=== PATIENT | female | born 1960 | race Caucasian/White ===

== ENCOUNTER → 2020-05-16 18:58 | Outpatient (CLI) | payer BC, SELFPAY ==
[2020-05-16 19:44] LABS: Basophils % 0.1 % (0.1-2.0); Eosinophils % 0.1 % (0.1-12.0); Hematocrit 34.3 % (37.0-47.0); Hemoglobin 11.1 g/dL (12.2-16.2); Lymphocytes # 1.7 K/mm3 (0.7-4.5); Lymphocytes % 22.6 % (10-50); Mean Corpuscular HGB Conc 32.2 g/dL (31.8-35.4); Mean Corpuscular Hemoglobin 27.3 pg (27.0-31.2); Mean Corpuscular Volume 84.7 fl (81-99); Mean Platelet Volume 8.9 fl (7.4-10.4); Monocytes # 0.3 K/mm3 (0.1-1.0); Monocytes % 4.1 % (1.7-9.3); Neutrophils # 5.5 K/mm3 (1.8-7.8); Neutrophils % 73.1 % (37.0-80.0); Platelet Count 378 K/mm3 (142-424); Red Blood Count 4.05 M/mm3 (4.20-5.40); Red Cell Distribution Width 14.2 % (11.5-17.5); White Blood Count 7.5 K/mm3 (4.8-10.8)
[2020-05-16 19:59] LABS: Alanine Aminotransferase 20 U/L (12-78); Albumin Level 4.1 g/dl (3.5-5.0); Albumin/Globulin Ratio 1.4 (1.1-1.8); Alkaline Phosphatase 86 U/L (38-126); Anion Gap 14.5 mEq/L (5-15); Aspartate Amino Transferase 33 U/L (14-36); Bilirubin,Total 0.3 mg/dl (0.2-1.3); Blood Urea Nitrogen 29 mg/dl (7-17); Calcium 9.9 mg/dl (8.4-10.2); Carbon Dioxide 25 mmol/L (22.0-30.0); Chloride 107 mmol/L (98-107); Estimated Glomerular Filt Rate 50 ml/min (>60); GFR (African American) 61 ML/MIN (>60); Globulin 2.9 g/dL (1.3-3.2); Glucose 105 mg/dl (74-100); Potassium 4.5 mmoL/L (3.5-5.1); Sodium 142 mmol/L (136-145)
[2020-05-16 20:03] LABS: Total Iron Binding Capacity 422 ug/dL (265-497)
[2020-05-16 20:26] LABS: Hemoglobin A1C 8.2 % (4.0-6.0)
[2020-05-16 21:02] LABS: Iron 57 ug/dL (37-170)
[2020-05-16 21:31] LABS: Ferritin 61.3 ng/ml (11.1-264)
[2020-05-16 22:01] LABS: T4 (Thyroxine) 9.3 ug/dl (5.53-11.0)
[2020-05-16 22:32] LABS: Thyroid Stimulating Hormone 1.16 uIU/mL (0.465-4.68)
== END ==
PROVIDERS: Visit Provider Family Medicine
DX: D64.9 Anemia, unspecified (principal); E11.9 Type 2 diabetes mellitus without complications
CPT/HCPCS: 80053; 82728; 83036; 83540; 83550; 84436; 84443; 85025

== ENCOUNTER → 2021-03-28 13:49 | Outpatient (CLI) | payer BC, SELFPAY ==
[2021-03-28 14:35] LABS: Creatinine,Urine Random 78 mg/dL (Not Estab.)
[2021-03-28 15:02] LABS: Microalbumin < 6.000 mg/L (0-16.7)
[2021-03-28 15:49] LABS: Hemoglobin A1C 7.7 % (4.0-6.0)
== END ==
PROVIDERS: Visit Provider Family Medicine
DX: E11.9 Type 2 diabetes mellitus without complications (principal); Z79.4 Long term (current) use of insulin
CPT/HCPCS: 82043; 82570; 83036; 84443

== ENCOUNTER → 2021-11-24 16:00 | Outpatient (CLI) | payer BC, SELFPAY ==
[2021-11-24 18:17] LABS: Basophils % 0.2 % (0.1-2.0); Hematocrit 37.6 % (37.0-47.0); Lymphocytes # 1.4 K/mm3 (0.7-4.5); Lymphocytes % 16.2 % (10-50); Mean Corpuscular Hemoglobin 26.9 pg (27.0-31.2); Mean Corpuscular Volume 83.9 fl (81-99); Mean Platelet Volume 9.2 fl (7.4-10.4); Monocytes # 0.3 K/mm3 (0.1-1.0); Monocytes % 3.2 % (1.7-9.3); Neutrophils # 6.8 K/mm3 (1.8-7.8); Neutrophils % 80.4 % (37.0-80.0); Platelet Count 371 K/mm3 (142-424); Red Blood Count 4.48 M/mm3 (4.20-5.40); Red Cell Distribution Width 14.8 % (11.5-17.5); White Blood Count 8.5 K/mm3 (4.8-10.8)
[2021-11-24 18:44] LABS: Hemoglobin A1C 8.7 % (4.0-6.0)
[2021-11-24 19:58] LABS: Alanine Aminotransferase 27 U/L (12-78); Albumin Level 4.2 g/dl (3.5-5.0); Albumin/Globulin Ratio 1.5 (1.1-1.8); Alkaline Phosphatase 81 U/L (38-126); Anion Gap 16.7 mEq/L (5-15); Aspartate Amino Transferase 29 U/L (14-36); Bilirubin,Total 0.4 mg/dl (0.2-1.3); Blood Urea Nitrogen 21 mg/dl (7-17); Calcium 9.1 mg/dl (8.4-10.2); Carbon Dioxide 21 mmol/L (22.0-30.0); Chloride 105 mmol/L (98-107); Chol/HDL Ratio 3.7 (1-3.5); Cholesterol 241 mg/dl (140-200); Estimated Glomerular Filt Rate 56 ml/min (>60); GFR (African American) 68 ML/MIN (>60); Globulin 2.8 g/dL (1.3-3.2); Glucose 189 mg/dl (74-100); HDL Cholesterol 65 mg/dl (40-60); Potassium 4.7 mmoL/L (3.5-5.1); Sodium 138 mmol/L (136-145); Triglycerides 164 mg/dl (30-150); VLDL Cholesterol 33 mg/dL (0-40)
[2021-11-24 20:09] LABS: Direct LDL Cholesterol 132.03 mg/dL (100-129)
[2021-11-24 20:43] LABS: Thyroid Stimulating Hormone 1.65 uIU/mL (0.465-4.68)
== END ==
PROVIDERS: Visit Provider Family Medicine
DX: Z00.00 Encounter for general adult medical examination without abnormal findings (principal); R69 Illness, unspecified; E11.9 Type 2 diabetes mellitus without complications; Z79.4 Long term (current) use of insulin
CPT/HCPCS: 80053; 80061; 83036; 84443; 85025

== ENCOUNTER → 2022-05-28 16:44 | Outpatient (CLI) | payer BC, SELFPAY ==
[2022-05-28 14:46] LABS: Hemoglobin A1C 7.8 % (4.0-6.0)
== END ==
PROVIDERS: PCP Family Medicine; Visit Provider Family Medicine
DX: E11.9 Type 2 diabetes mellitus without complications (principal); Z79.4 Long term (current) use of insulin
CPT/HCPCS: 83036

== ENCOUNTER → 2023-08-23 06:56 | Outpatient (CLI) | payer BC, SELFPAY ==
[2023-08-23 18:23] LABS: Basophils % 0.1 % (0.1-2.0); Eosinophils % 0.1 % (0.1-12.0); Hematocrit 32.5 % (37.0-47.0); Hemoglobin 10.3 g/dL (12.2-16.2); Lymphocytes # 1.3 K/mm3 (0.7-4.5); Lymphocytes % 23.5 % (10-50); Mean Corpuscular HGB Conc 31.6 g/dL (31.8-35.4); Mean Corpuscular Hemoglobin 27.1 pg (27.0-31.2); Mean Corpuscular Volume 85.6 fl (81-99); Mean Platelet Volume 8.9 fl (7.4-10.4); Monocytes # 0.3 K/mm3 (0.1-1.0); Neutrophils # 3.9 K/mm3 (1.8-7.8); Neutrophils % 71.3 % (37.0-80.0); Platelet Count 288 K/mm3 (142-424); Red Blood Count 3.79 M/mm3 (4.20-5.40); White Blood Count 5.4 K/mm3 (4.8-10.8)
[2023-08-23 18:28] LABS: Alanine Aminotransferase 24 U/L (12-78); Albumin Level 3.7 g/dl (3.5-5.0); Albumin/Globulin Ratio 1.3 (1.1-1.8); Alkaline Phosphatase 72 U/L (38-126); Anion Gap 7.6 mEq/L (5-15); Aspartate Amino Transferase 35 U/L (14-36); Bilirubin,Total 0.2 mg/dl (0.2-1.3); Blood Urea Nitrogen 20 mg/dl (7-17); Calcium 8.8 mg/dl (8.4-10.2); Carbon Dioxide 26 mmol/L (22.0-30.0); Chloride 110 mmol/L (98-107); Chol/HDL Ratio 3.8 (1-3.5); Cholesterol 197 mg/dl (140-200); Estimated Glomerular Filt Rate 56 ml/min (>60); GFR (African American) 68 ML/MIN (>60); Globulin 2.8 g/dL (1.3-3.2); Glucose 94 mg/dl (74-100); HDL Cholesterol 52 mg/dl (40-60); Potassium 4.6 mmoL/L (3.5-5.1); Sodium 139 mmol/L (136-145); Total Protein,Serum 6.5 g/dl (6.3-8.2); Triglycerides 221 mg/dl (30-150); VLDL Cholesterol 44 mg/dL (0-40)
[2023-08-23 18:39] LABS: Direct LDL Cholesterol 108.94 mg/dL (100-129)
[2023-08-23 18:57] LABS: Hemoglobin A1C 7.8 % (4.0-6.0)
[2023-08-23 18:58] LABS: Thyroid Stimulating Hormone 0.09 uIU/mL (0.465-4.68)
[2023-08-23 19:10] LABS: Microalbumin/Creatinine Ratio 7.3
[2023-08-23 19:13] LABS: Creatinine,Urine Random 123 mg/dL (Not Estab.)
== END ==
PROVIDERS: PCP Family Medicine; Visit Provider Family Medicine
DX: E11.9 Type 2 diabetes mellitus without complications (principal); Z79.4 Long term (current) use of insulin; Z79.84 Long term (current) use of oral hypoglycemic drugs; Z79.85 Long-term (current) use of injectable non-insulin antidiabetic drugs
CPT/HCPCS: 80053; 80061; 82043; 82570; 83036; 84443; 85025

== ENCOUNTER 2024-05-17 16:21 | Outpatient (CLI) | payer BC, SELFPAY ==
[2024-05-17 18:22] LABS: Basophils % 0.1 % (0.1-2.0); Hematocrit 33.8 % (37.0-47.0); Lymphocytes # 1.6 K/mm3 (0.7-4.5); Mean Corpuscular HGB Conc 29.7 g/dL (31.8-35.4); Mean Corpuscular Hemoglobin 26.9 pg (27.0-31.2); Mean Corpuscular Volume 90.5 fl (81-99); Mean Platelet Volume 9.9 fl (7.4-10.4); Monocytes # 0.3 K/mm3 (0.1-1.0); Neutrophils # 4.5 K/mm3 (1.8-7.8); Neutrophils % 69.9 % (37.0-80.0); Platelet Count 351 K/mm3 (142-424); Red Blood Count 3.73 M/mm3 (4.20-5.40); Red Cell Distribution Width 14.6 % (11.5-17.5); White Blood Count 6.4 K/mm3 (4.8-10.8)
[2024-05-17 18:27] LABS: Creatinine,Urine Random 50 mg/dL (Not Estab.)
[2024-05-17 18:52] LABS: Alanine Aminotransferase 25 U/L (12-78); Albumin Level 3.6 g/dl (3.5-5.0); Albumin/Globulin Ratio 1.2 (1.1-1.8); Alkaline Phosphatase 63 U/L (38-126); Anion Gap 12.3 mEq/L (5-15); Aspartate Amino Transferase 30 U/L (14-36); Bilirubin,Total 0.2 mg/dl (0.2-1.3); Blood Urea Nitrogen 24 mg/dl (7-17); Calcium 9.3 mg/dl (8.4-10.2); Carbon Dioxide 23 mmol/L (22.0-30.0); Chloride 105 mmol/L (98-107); Cholesterol 204 mg/dl (140-200); Estimated Glomerular Filt Rate 50 ml/min (>60); GFR (African American) 60 ML/MIN (>60); Globulin 2.9 g/dL (1.3-3.2); Glucose 126 mg/dl (74-100); HDL Cholesterol 69 mg/dl (40-60); Hemoglobin A1C 7.1 % (4.0-6.0); Potassium 5.3 mmoL/L (3.5-5.1); Sodium 135 mmol/L (136-145); Total Protein,Serum 6.5 g/dl (6.3-8.2); Triglycerides 181 mg/dl (30-150); VLDL Cholesterol 36 mg/dL (0-40)
[2024-05-17 18:53] LABS: Microalbumin < 6.000 mg/L (0-16.7)
[2024-05-17 19:02] LABS: Direct LDL Cholesterol 97.11 mg/dL (100-129)
[2024-05-17 19:24] LABS: Thyroid Stimulating Hormone 2.53 uIU/mL (0.465-4.68)
[2024-05-17 20:04] LABS: Iron 59 ug/dL (37-170)
[2024-05-17 20:13] LABS: Total Iron Binding Capacity 440 ug/dL (265-497)
== END 2024-05-17 23:59 | disposition home or self-care (01) ==
LOC: LAB.DROPOF 05-18 10:19
PROVIDERS: PCP Family Medicine; Visit Provider Family Medicine
DX: D50.9 Iron deficiency anemia, unspecified (principal); E11.9 Type 2 diabetes mellitus without complications; Z79.84 Long term (current) use of oral hypoglycemic drugs
CPT/HCPCS: 80050; 80053; 80061; 82043; 82570; 83036; 83540; 83550; 84443; 85025

== ENCOUNTER 2025-06-25 11:07 | Outpatient (CLI) | payer MEDICARE, SELFPAY ==
[2025-06-25 21:02] LABS: Hematocrit 34.0 % (37.0-47.0); Hemoglobin 10.2 g/dL (12.2-16.2); Immature Granulocytes % 0.3 %; Mean Corpuscular HGB Conc 30.0 g/dL (31.8-35.4); Mean Corpuscular Hemoglobin 27.1 pg (27.0-31.2); Mean Corpuscular Volume 90.4 fl (81-99); Nucleated Red Blood Cells % 0 %; Platelet Count 323 K/mm3 (142-424); Red Blood Count 3.76 M/mm3 (4.20-5.40); Red Cell Distribution Width-SD 46.5 fL; White Blood Count 6.5 K/mm3 (4.8-10.8)
[2025-06-25 21:21] LABS: Albumin Level 3.9 g/dl (3.5-5.0); Chloride 105 mmol/L (98-107)
[2025-06-25 21:22] LABS: Sodium 137 mmol/L (136-145)
[2025-06-25 21:24] LABS: Alanine Aminotransferase 26 U/L (12-78); Albumin/Globulin Ratio 1.4 (1.1-1.8); Alkaline Phosphatase 63 U/L (38-126); Anion Gap 14.0 mEq/L (5-15); Aspartate Amino Transferase 32 U/L (14-36); Bilirubin,Total 0.2 mg/dl (0.2-1.3); Blood Urea Nitrogen 26 mg/dl (7-17); Carbon Dioxide 24 mmol/L (22.0-30.0); Creatinine,Serum 1.20 mg/dl (0.52-1.04); Estimated Glomerular Filt Rate 45 ml/min (>60); GFR (African American) 54 ML/MIN (>60); Globulin 2.8 g/dL (1.3-3.2); Total Protein,Serum 6.7 g/dl (6.3-8.2); Triglycerides 206 mg/dl (30-150)
[2025-06-25 21:25] LABS: Calcium 9.2 mg/dl (8.4-10.2); Cholesterol 210 mg/dl (140-200); Glucose 94 mg/dl (74-100); HDL Cholesterol 61 mg/dl (40-60); Iron 113 ug/dL (37-170)
[2025-06-25 21:35] LABS: Total Iron Binding Capacity 405 ug/dL (265-497)
[2025-06-25 21:45] LABS: Potassium 6.0 mmoL/L (3.5-5.1)
[2025-06-25 21:46] LABS: T4 (Thyroxine) 7.3 ug/dl (5.53-11.0)
[2025-06-25 21:59] LABS: Thyroid Stimulating Hormone 4.34 uIU/mL (0.465-4.68)
[2025-06-25 22:15] LABS: Hepatitis C Ab Qual. W/ RFX NEGATIVE (Negative)
[2025-06-27 04:42] LABS: Hepatitis B Surface Antigen Negative (Negative)
--- OUTSIDE RECORDS SUMMARY | 2025-06-27 11:45 | XMS_ITS | Clinical Summary ---
Author Organization [facility] Address [address] [place] [address] Care Team Providers Care Moss Bleacher Name Role Phone Corey Roman MD Primary Care Provider [phone] Source Comments This information has been disclosed to you from confidential records protectedfrom disclosure by state law. You shall make no further disclosure of thisinformation without the specific, written, and informed release of theindividual to whom it pertains, or as otherwise permitted by law. A generalauthorization for the release of medical or other information is not sufficientfor the purposes of therelease of HIV test results or diagnoses. [id number] Social History Tobacco Use Types Packs/Day Years Used Date Smoking Tobacco: Never Assessed Comments Unknown Sex and Gender Information Value Date Recorded Sex Assigned at Not on file Legal Sex Female 5:31 PM EST Gender Identity Not on file Sexual Orientation Not on file Plan of Treatment Health Maintenance Due Date Last Done Comments Abnormal Colonoscopy Follow Up 1959 Hepatitis C Screening (MyChart) 1959 Alcohol Misuse Screening 1977 Depression Screening 1977 Immunization: DTaP/Tdap/Td (1 - Tdap) 1978 Cologuard (FIT-DNA) 01/02/2004 Colonoscopy 01/02/2004 Colorectal Cancer Screening (MyChart) 01/02/2004 Stool Testing (gFOBT) 01/02/2004 Immunization: Pneumococcal ( 1 of 1 - PCV) 2009 Immunization: Zoster (1 of 2) 2009 Osteoporosis Screening (DXA Scan) 2009 Mammogram (MyChart) 08/21/2024 08/21/2022 Immunization: COVID-19 ( season) 2025 07/11/2021, 10/12/2020, 09/21/2020 Immunization: Influenza (MyC sky) (#1) 2025 06/19/2022, 06/24/2021, 06/24/2020 Immunization: RSV (Adult) (1 - 1-dose 75+ series) 2034 Procedures Procedure Name Priority Date/Time Associated Diagnosis Comments MAMMO SCREENING BILATERAL Routine 08/21/2022 9:32 AM EST Screening mammogram, encounter for from Last 3 Months or Most Recently Relevant to Health Maintenance Results * Mammography Screening Bilateral incl CAD (08/21/2022 9:32 AM EST) Anatomical Region Laterality Modality Breast Bilateral Mammography 08/21/2022 9:31 AM EST Impressions 08/22/2022 10:35 AM EST IMPRESSION: No mammographic evidence of malignancy. Recommendations: Annual screening mammography. ACR BI-RADS Category: 2 (benign findings) Report Verified by: Allyn Rosales MD at 08/22/2022 10:35 AM EST Narrative 08/22/2022 10:35 AM EST Exam: Digital bilateral breast screening mammogram with tomosynthesis and CAD on 08/21/2022 9:31 AM EST. Indication: Screening mammography. No contributory breast history. Comparison: 06/23/2018. Technique: Digital mammographic and tomosynthesis images were obtained in MLO and CC projections. The mammographic images were double read with R2 CAD ImageChecker. Breast Density: The breast tissue is predominantly fatty. Findings: There are no suspicious masses, calcifications, or architectural distortions. An asymmetry in the inner left breast at mid depth is unchanged from 2018, considered benign. There has been no significant interval change. Procedure Note Allyn Rosales MD - 08/22/2022 Exam: Digital bilateral breast screening mammogram with tomosynthesis andCAD on 08/21/2022 9:31 AM EST. Indication: Screening mammography. No contributory breast history. Comparison: 06/23/2018. Technique: Digital mammographic and tomosynthesis images were obtained inMLO and CC projections. The mammographic images were double read with R2CAD ImageChecker. Breast Density: The breast tissue is predominantly fatty. Findings: There are no suspicious masses, calcifications, or architecturaldistortions. An asymmetry in the inner left breast at mid depth isunchanged from 2018, considered benign. There has been no significantinterval change. IMPRESSION: No mammographic evidence of malignancy. Recommendations: Annual screening mammography. ACR BI-RADS Category: 2 (benign findings) Report Verified by: Allyn Rosales MD at 08/22/2022 10:35 AM EST Corey Roman MD IM MAMMOGRAPHY ORDERABLES Gina l Result from Last 3 Months or Most Recently Relevant to Health Maintenance Insurance BLUE ACCESS Care Teams Moss Bleacher Relationship Specialty Start Date End Date Corey Roman MD [address] [place] [address] PCP - General Family Medicine 08/21/22
--- OUTSIDE RECORDS SUMMARY | 2025-06-27 11:45 | XMS_ITS | Clinical Summary ---
Author Organization [facility] Address [address] [place] [address] Care Team Providers Care Art Historian Name Role Phone Unavailable Primary Care Provider Unavailabl e Social History Tobacco Use Types Packs/Day Years Used Date Smoking Tobacco: Never Assessed Comments Unknown Sex and Gender Information Value Date Recorded Sex Assigned at Not on file Legal Sex Female 8:47 PM EDT Gender Identity Not on file Sexual Orientation Not on file Plan of Treatment Health Maintenance Due Date Last Done Comments Hepatitis C Screening 1959 DTap,Tdap,and Td (1 - Tdap) 1970 Mammogram Screening 1999 Colonoscopy 01/02/2004 Pneumococcal 50+ (1 of 1 - PCV) 2009 Shingrix (#1) 2009 DEXA Scan 01/02/2024 Influenza Vaccine (#1) 2025 RSV Vaccine (60+ or ) (1 - 1-dose 75+ series) 2034 HPV Aged Out No longer eligi ble based on patient's age to complete this topic Meningococcal conjugate brennon nt 4 (MCV4) Aged Out No longer eligible b ased on patient's age to complete this topic RSV Immunization (<20 months) Aged Out No longer eligible based on patient's age to complete this topic
--- OUTSIDE RECORDS SUMMARY | 2025-06-27 11:45 | XMS_ITS | Clinical Summary ---
Author Organization [facility] Address [address] [facility] [address] [address] Phone Care Team Providers Care Client Service Executive Name Role Phone Richard Figueroa MD Unavailable Unavailable Corey Roman MD Primary Care Provider [phone] Allergies Active Allergy Reactions Criticality Noted Date Comments Ceclor Cd 06/16/2016 Ciprofloxacin Rash High 11/02/2011 Oxaprozin Anaphylaxis High 11/02/2011 Cephalexin Anaphylaxis High 11/02/2011 Medications * This document contains information received from the source organization and may not represent a complete record from that organization. rosuvastatin (CRESTOR) 40 mg tablet Take 40 mg by mouth daily. Active saxagliptin-me tformin (KOMBIGLYZE XR) 2.5-1,000 mg TM24 Take by mouth daily. Active ESOMEPRAZOLE MAGNESIUM (NEXIUM ORAL) Take by mouth. A ctive LEVOTHYROXINE SODIUM (LEVOTHYROXINE ORAL) Take 175 mcg by mouth daily. Active lisinopril (PRINIVIL;ZEST RIL) 10 mg Oral Tablet Take by mouth daily. Active Diphenhydramin e-Acetaminophe n (PERCOGESIC) 12.5-325 mg Oral Tablet Take by mouth. Act melissa Insulin Glargine (LANTUS) 100 unit/mL (3 mL) SubQ Insulin Pen Subcutaneous (Inject under the skin) 45 Units every evening. Active diazePAM (VALIUM) 5 mg Oral Tablet Take 1 Tab by mouth 2 times daily. 60 Tab 11/24/19 19 Active venlafaxine (EFFEXOR XR) 150 mg Oral Capsule, Sust. Release 24 hrIndications: MDD (major depressive disorder), recurrent episode, moderate (HCC),Anxiety 2 caps daily 180 Capsule 2 04/10/20 25 Active mirtazapine (REMERON) 30 mg Oral TabletIndicati ons:MDD (major depressive disorder), recurrent episode, moderate (HCC),Anxiety Take 1 Tablet by mouth nightly. 100 Tablet 04/10/20 25 Active temazepam (RESTORIL) 30 mg Oral Capsule TAKE 1 CAPSULE BY MOUTH DAILY. 30 Capsule 05/30/20 25 Active temazepam (RESTORIL) 30 mg Oral Capsule Take 1 Capsule by mouth daily. 30 Capsule 04/30/20 25 025 Discontinued Active Problems Patient Care Coordination No te Formatting of this note migh t be different from the original. Roxanne Robbin CSA Signed: 10/23/13 SOPHIE: 02/22/19 UDS 11/23/18 Problem Noted Date Diagnosed Date Anxiety 11/21/2019 Overview (09/08/2023): stress in her life Assessment & Plan (03/17/2023 9:32 AM EDT): Goal: achieve mental health wellness where ADLs, family, social and work relationships are optimal Addressed: - Current stressors contributing to sx explored and discussed Compliance: - compliant with medications Advice: - advised to contact the office if increased depressive or anxiety symptoms develop Medication Management: - medication management decisions took place at today's visit (see orders) Assessment & Plan (09/15/2022 4:55 PM EST): Goal: achieve mental health wellness where ADLs, family, social and work relationships are optimal Addressed: - Current stressors contributing to sx explored and discussed Compliance: - taking medications as prescribed. Advice: - advised to contact the office if increased depressive or anxiety symptoms develop Medication Management: - medication management decisions took place at today's visit (see orders) Assessment & Plan (06/17/2022 5:08 PM EDT): Goal: achieve mental health wellness where ADLs, family, social and work relationships are optimal Addressed: - Current stressors contributing to sx explored and discussed Compliance: - taking medications as prescribed. Advice: - advised to contact the office if increased depressive or anxiety symptoms develop Medication Management: - medication management decisions took place at today's visit (see orders) Assessment & Plan (03/11/2022 2:00 PM EDT): Goal: achieve mental health wellness where ADLs, family, social and work relationships are optimal Addressed: - Current stressors contributing to sx explored and discussed Compliance: - taking medications as prescribed. Advice: - advised to contact the office if increased depressive or anxiety symptoms develop Medication Management: - medication management decisions took place at today's visit (see orders) Assessment & Plan (09/10/2021 4:27 PM EST): stable Assessment & Plan (06/11/2021 2:58 PM EDT): stress at school Assessment & Plan (03/12/2021 4:31 PM EDT): improved PTSD (post-traumatic stress disorder) 08/23/2013 Overview (06/15/2023): some anger issues Assessment & Plan (03/17/2023 9:32 AM EDT): Goal: achieve mental health wellness where ADLs, family, social and work relationships are optimal Addressed: - Current stressors contributing to sx explored and discussed Compliance: - compliant with medications Advice: - advised to contact the office if increased depressive or anxiety symptoms develop Medication Management: - medication management decisions took place at today's visit (see orders) Assessment & Plan (12/15/2022 4:20 PM EDT): stable Assessment & Plan (09/15/2022 4:55 PM EST): coping skills Assessment & Plan (06/17/2022 5:07 PM EDT): coping skills Assessment & Plan (03/11/2022 2:00 PM EDT): Goal: achieve mental health wellness where ADLs, family, social and work relationships are optimal Addressed: - Current stressors contributing to sx explored and discussed Compliance: - taking medications as prescribed. Advice: - advised to contact the office if increased depressive or anxiety symptoms develop Medication Management: - a reassessment of the patients current diagnoses, medications, labs, potential SE, appropriate dose and risks assessed and discussed today Assessment & Plan (12/10/2021 2:13 PM EDT): coping skills- depressed Assessment & Plan (09/10/2021 4:31 PM EST): coping skills Assessment & Plan (06/11/2021 2:58 PM EDT): coping skills Insomnia 07/31/2013 Overview (03/17/2023): stable Assessment & Plan (09/16/2022 10:46 AM EST): stable Assessment & Plan (06/17/2022 5:08 PM EDT): stable Assessment & Plan (03/11/2022 2:00 PM EDT): stable Assessment & Plan (12/10/2021 2:12 PM EDT): she is sleeping Assessment & Plan (09/10/2021 4:27 PM EST): improved Assessment & Plan (06/11/2021 2:59 PM EDT): stable Assessment & Plan (03/12/2021 4:30 PM EDT): improved Assessment & Plan (12/11/2020 4:24 PM EDT): restoril 30mg MDD (major depressive disord er), recurrent episode, moderate 07/18/2013 Overview (03/17/2023): dealing with grief - loss of family memeber Assessment & Plan (12/15/2022 4:19 PM EDT): Goal: achieve mental health wellness where ADLs, family, social and work relationships are optimal Addressed: - Current stressors contributing to sx explored and discussed Compliance: - taking medications as prescribed. Advice: - advised to contact the office if increased depressive or anxiety symptoms develop Medication Management: - medication management decisions took place at today's visit (see orders) Assessment & Plan (09/15/2022 4:55 PM EST): Goal: achieve mental health wellness where ADLs, family, social and work relationships are optimal Addressed: - Current stressors contributing to sx explored and discussed Compliance: - taking medications as prescribed. Advice: - advised to contact the office if increased depressive or anxiety symptoms develop Medication Management: - medication management decisions took place at today's visit (see orders) Assessment & Plan (06/17/2022 5:07 PM EDT): Goal: achieve mental health wellness where ADLs, family, social and work relationships are optimal Addressed: - Current stressors contributing to sx explored and discussed Compliance: - taking medications as prescribed. Advice: - advised to contact the office if increased depressive or anxiety symptoms develop Medication Management: - medication management decisions took place at today's visit (see orders) Assessment & Plan (12/10/2021 2:12 PM EDT): she has depression - situational Assessment & Plan (09/10/2021 4:28 PM EST): stable- doing good with school Assessment & Plan (06/11/2021 2:59 PM EDT): has her ups and downs- stress at school Assessment & Plan (03/12/2021 4:31 PM EDT): improved Assessment & Plan (12/11/2020 4:24 PM EDT): remeron 30mg Resolved Problems Problem Noted Date Diagnosed Date Resolved Date JACE (generalized anxiety disorder) 07/18/2013 08/23/2013 Assessment & Plan (12/15/2022 4:19 PM EDT): Goal: achieve mental health wellness where ADLs, family, social and work relationships are optimal Addressed: - Current stressors contributing to sx explored and discussed Compliance: - taking medications as prescribed. Advice: - advised to contact the office if increased depressive or anxiety symptoms develop - stable Medication Management: - a reassessment of the patients current diagnoses, medications, labs, potential SE, appropriate dose and risks assessed and discussed today Assessment & Plan (12/10/2021 2:15 PM EDT): increased stress Immunizations Immunization Administration Dates Next Due Pfizer SARS-CoV-2 Vaccine 12+ Yrs (Purple Cap) 0 10/12/2020,09/21/2020 Tdap 01/08/2023 Surgical History Surgery Date Site/Laterality Comments ORTHOPEDIC SURGERY CARPAL TUNNEL RELEASE Medical History Medical History Date Comments Depressed JACE (generalized anxiety disorder) 07/18/2013 MDD (major depressive disord er), recurrent episode, moderate (HCC) 07/18/2013 PTSD (post-traumatic stress disorder) 08/23/2013 Diabetes mellitus (HCC) Social History Tobacco Use Types Packs/Day Years Used Date Smoking Tobacco: Never Smokeless Tobacco: Never Alcohol Use Standard Drinks/Week Comments Yes 2 (1 standard drink = 0.6 oz pur e alcohol) couple drinks daily Comments No Sex and Gender Information Value Date Recorded Sex Assigned at Not on file Legal Sex Female 5:20 AM EDT Gender Identity Not on file Sexual Orientation Not on file Last Filed Vital Signs Vital Sign Reading Time Taken Comments Blood Pressure 135/79 05/11/2023 8:44 AM EDT Pulse 106 05/11/2023 8:39 AM EDT Temperature 36.3 C (97.3 F) 05/11/2023 8:44 AM EDT Respiratory Rate 16 05/11/2023 8:39 AM EDT Oxygen Saturation 98% 05/11/2023 8:39 AM EDT Inhaled Oxygen Concentration - - Weight 75.8 kg (167 lb) 06/16/2016 11:18 AM EDT Height 152.4 cm (5') 06/16/2016 11:18 AM EDT Body Mass Index 32.61 06/16/2016 11:18 AM EDT Plan of Treatment Health Maintenance Due Date Last Done Comments Annual Wellness Exam 1962 Hepatitis C Screening 1977 Cologuard 01/02/2004 Colon Cancer Screening 01/02/2004 Colonoscopy 01/02/2004 FIT 01/02/2004 Sigmoidoscopy 01/02/2004 Virtual Colonography 01/02/2004 Pneumococcal Vaccine 50+ (1 of 1 - PCV) 2009 Zoster (1 of 2) 2009 Bone Density Screening 01/02/2024 Breast Cancer Screening 08/21/2024 08/21/20 22, 08/21/2022, 07/27/2018, Additional history exists COVID-19 Vaccine ( season) 2025 07/11/2021, 10/12/2020, 09/21/2020 Influenza Vaccine (#1) 2025 , 06/04/2023, 06/19/2022, Additional history exists DTaP/TDaP/Td (2 - Td or Tdap) 01/08/2033 01/08/2023 Hepatitis B Vaccine Aged Out No longe r eligible based on patient's age to complete this topic Meningococcal B Vaccine Aged Out No l onger eligible based on patient's age to complete this topic Procedures Procedure Name Priority Date/Time Associated Diagnosis Comments MM MAMMO DIGITAL ROBEL DIAGN LEFT Routine 07/27/2018 10:17 AM EST Breast density from Last 3 Months or Most Recently Relevant to Health Maintenance Results * MM MAMMO DIGITAL ROBEL DIAGN LEFT (07/27/2018 10:17 AM EST) Anatomical Region Laterality Modality Breast Left Mammography 07/27/2018 11:2 9 AM EST Impressions 07/27/2018 11:29 AM EST Incomplete-need additional imaging evaluation (MFI-Gwsikocs-5) ~ RECOMMENDATION: Ultrasound of the left breast. This ultrasound examination has been performed on 07-27-18 and will be reported separately. ~ DISCLAIMER * Any patient with a palpable abnormality, unexplained by breast imaging, should be managed on clinical basis by the attending physician. * Breast imaging has a false negative rate of 15%. * The patient was notified by mail of the results of this examination. *The patient's information was entered into a reminder system with a target due date for the next mammogram. Narrative 07/27/2018 11:29 AM EST Procedure:MM MAMMO DIGITAL ROBEL DIAGN LEFT ~ Reason for exam: addl evaluation requested from abnormal screening. R92.2-Inconclusive [id number]-CM ~ MM MAMMO DIGITAL ROBEL DIAGN LEFT CC and MLO view(s) were taken of the left breast. Technologist: RT Brittney The breast tissue is almost entirely fat. Prior study comparison: Compared with prior studies, the most recent being 06/23/18 and 05/28/10. Three circumscribed 2 to 4 mm nodules are present in the mid 10:00 part of left breast. ~ Procedure Note Jorge Ochoa MD - 07/27/2018 Procedure:MM MAMMO DIGITAL ROBEL DIAGN LEFT ~ Reason for exam: addl evaluation requested from abnormal screening. R92.2-Inconclusive [id number]-CM ~ MM MAMMO DIGITAL ROBEL DIAGN LEFT CC and MLO view(s) were taken of the left breast. Technologist: Sherri Thomas RT The breast tissue is almost entirely fat. Prior study comparison: Compared with prior studies, the most recentbeing 06/23/18 and 05/28/10. Three circumscribed 2 to 4 mm nodules are present in the mid 10:00 partof left breast. ~ IMPRESSION: Incomplete-need additional imaging evaluation (MSH-Vefpaxgo-0) ~ RECOMMENDATION: Ultrasound of the left breast. This ultrasound examination has been performed on 07-27-18 and will be reported separately. ~ DISCLAIMER * Any patient with a palpable abnormality, unexplained by breast imaging, should be managed on clinical basis by the attending physician. * Breast imaging has a false negative rate of 15%. * The patient was notified by mail of the results of this examination. *The patient's information was entered into a reminder system with atarget due date for the next mammogram. Corey Roman MD IMG MAMMOGRAPHY ORDERABLES Final Result from Last 3 Months or Most Recently Relevant to Health Maintenance Insurance [employer] MEDICARE TRAVELERS GENERIC WORKERS' COMP GENERIC WORKERS' COMP Care Teams Client Service Executive Relationship Specialty Start Date End Date Corey Roman MD PCP - General Family Medicine 06/03/16 Richard Figueroa MD Physician Psychiatry & Neurology-Psychiatry 01/30/14
== END 2025-06-25 23:59 ==
LOC: LAB.DROPOF 06-27 11:08
PROVIDERS: PCP Family Medicine; Visit Provider Family Medicine
DX: E03.9 Hypothyroidism, unspecified (principal); E11.9 Type 2 diabetes mellitus without complications; D50.9 Iron deficiency anemia, unspecified; Z11.59 Encounter for screening for other viral diseases
CPT/HCPCS: 80053; 80061; 83540; 83550; 84436; 84443; 85025; 86803; 87340; 87389

== ENCOUNTER 2025-06-27 08:46 | Outpatient (CLI) | payer MEDICARE, SELFPAY ==
[2025-06-27 19:57] LABS: Chloride 104 mmol/L (98-107); Sodium 137 mmol/L (136-145)
[2025-06-27 20:00] LABS: Blood Urea Nitrogen 26 mg/dl (7-17); Creatinine,Serum 1.30 mg/dl (0.52-1.04); Estimated Glomerular Filt Rate 41 ml/min (>60); GFR (African American) 50 ML/MIN (>60)
[2025-06-27 20:01] LABS: Anion Gap 13.2 mEq/L (5-15); Calcium 9.3 mg/dl (8.4-10.2); Carbon Dioxide 26 mmol/L (22.0-30.0); Glucose 140 mg/dl (74-100)
[2025-06-27 20:19] LABS: Potassium 6.2 mmoL/L (3.5-5.1)
== END 2025-06-27 23:59 ==
LOC: LAB.DROPOF 06-29 08:47
PROVIDERS: PCP Family Medicine; Visit Provider Family Medicine
DX: E87.5 Hyperkalemia (principal)
CPT/HCPCS: 80048

== ENCOUNTER 2025-06-27 22:29 | Emergency (ER) | payer MEDICARE, SELFPAY ==
[2025-06-27 22:32] VITALS: BP 156/86; PULSE 101; RESP 18; TEMP 36.8; O2SAT 100; BMI 28.9
--- OUTSIDE RECORDS SUMMARY | 2025-06-27 22:41 | XMS_ITS | Clinical Summary ---
Author Organization [facility] Address [address] [place] [id number] Care Team Providers Care Forest Management Teacher Name Role Phone Corey Roamn MD Primary Care Provider [phone] Source Comments This information has been disclosed [...] therelease of HIV test results or diagnoses. [id number] Social History Tobacco Use Types Packs/Day [...] Health Maintenance Insurance BLUE ACCESS Care Teams Forest Management Teacher Relationship Specialty Start Date End Date Corey Roman MD [address] [place] [address] PCP - General Family Medicine 08/21/22
--- OUTSIDE RECORDS SUMMARY | 2025-06-27 22:41 | XMS_ITS | Clinical Summary ---
Author Organization [facility] Address [address] [place] [id number] Care Team Providers Care Stores Laborer Name Role Phone Unavailable Primary Care Provider [...]
--- OUTSIDE RECORDS SUMMARY | 2025-06-27 22:41 | XMS_ITS | Clinical Summary ---
Author Organization [facility] Address [address] [facility] [address] [place] [address] Phone Care Team Providers Care Floor Layer Name Role Phone Richard Figueroa MD Unavailable Unavailable Corey Roman MD Primary Care Provider [phone] Allergies Active Allergy Reactions Criticality Noted Date [...] 11:29 AM EST Incomplete-need additional imaging evaluation (QMA-Sbjxumnz-1) ~ RECOMMENDATION: Ultrasound of the left breast. [...] addl evaluation requested from abnormal screening. R92.2-Inconclusive ygyiupvfw-DVZ-05-CM ~ MM MAMMO DIGITAL ROBEL DIAGN LEFT [...] addl evaluation requested from abnormal screening. R92.2-Inconclusive ziyuuwmak-[id number]-CM ~ MM MAMMO DIGITAL ROBEL DIAGN LEFT CC and MLO view(s) were taken of the left breast. Technologist: Sherri Thomas RT The breast tissue is almost entirely fat. Prior study comparison: Compared with prior studies, the most recentbeing 06/23/18 and 05/28/10. Three circumscribed 2 to 4 mm nodules are present in the mid 10:00 partof left breast. ~ IMPRESSION: Incomplete-need additional imaging evaluation (IUY-Ebaistwm-4) ~ RECOMMENDATION: Ultrasound of the left breast. [...] WORKERS' COMP GENERIC WORKERS' COMP Care Teams Floor Layer Relationship Specialty Start Date End Date Corey Roman MD PCP - General Family Medicine 06/03/16 Richard Figueroa MD Physician Psychiatry & Neurology-Psychiatry 01/30/14
--- NOTE | 2025-06-27 22:44 | ECG_ITS ---
APPROVED REPORT Exam: Resting ECG HR:94 bpm ECG Measurements Heart Rate 94 AXES MI 119 P 66 QRSd 81 QRS 46 QT 342 T 54 QTc 393 Conclusion SINUS RHYTHM WITH SHORT MI INTERVAL BORDERLINE ECG UNCONFIRMED REPORT Electronically signed by : GEOVANNI MC, 06/28/2025 06:43:18
--- NOTE | 2025-06-27 23:04 | HMH.EDGENADL ---
Discharge Plan Disposition Patient Disposition: Home, Self-Care Prescriptions Prescriptions: No Action temazepam 30 mg capsule 30 mg PO QHS mirtazapine 30 mg tablet 30 mg PO DAILY Mounjaro 5 mg/0.5 mL pen injector 5 mg SQ WEEKLY Qty: 2 12RF (DME) pen needle, diabetic [BD Evangelina 2nd Gen Pen Needle] 32 gauge x 5/32 needle See Rx Instructions .ROUTE .COMPLEX Qty: 100 10RF Dose Instruction: USE ONE DAILY. Rx Instructions: USE ONE DAILY. rosuvastatin 40 mg tablet 40 mg PO DAILY Qty: 90 3RF lisinopril 2.5 mg tablet See Rx Instructions .ROUTE .COMPLEX Qty: 90 3RF Dose Instruction: TAKE 1 TABLET BY MOUTH DAILY. Rx Instructions: TAKE 1 TABLET BY MOUTH DAILY. levothyroxine 88 mcg capsule 88 mcg PO DAILY Qty: 90 3RF esomeprazole magnesium 40 mg capsule,delayed release(DR/EC) See Rx Instructions .ROUTE .COMPLEX Qty: 90 3RF Dose Instruction: TAKE 1 CAPSULE BY MOUTH DAILY. Rx Instructions: TAKE 1 CAPSULE BY MOUTH DAILY. ferrous sulfate 325 mg (65 mg iron) tablet 325 mg PO DAILY Qty: 90 3RF fenofibrate nanocrystallized 145 mg tablet See Rx Instructions .ROUTE .COMPLEX Qty: 90 3RF Dose Instruction: TAKE 1 TABLET BY MOUTH DAILY. Rx Instructions: TAKE 1 TABLET BY MOUTH DAILY. metformin 1,000 mg tablet See Rx Instructions .ROUTE .COMPLEX Qty: 180 3RF Dose Instruction: TAKE 1 TABLET BY MOUTH DAILY. Rx Instructions: TAKE 1 TABLET BY MOUTH twice daily. insulin glargine [Lantus Solostar U-100 Insulin] 100 unit/mL (3 mL) insulin pen 60 unit SQ HS Qty: 15 12RF diazepam 5 mg tablet 5 mg PO DAILY PRN (Reason: anxiety) Qty: 30 5RF venlafaxine 150 mg capsule,extended release 24hr 150 mg PO DAILY Rx Instructions: 2 capsules daily Referrals Follow up/Referrals: Corey Roman MD [Primary Care Provider, Family Practice] - See instructions Activity Restrictions/Add. Instructions Additional Instructions/Restrictions: Please call your PCP to schedule lab recheck. Clinical Impressions Clinical Impression: BALDEMAR (acute kidney injury), Hypomagnesemia Print Language Print Language: Trinidadian Discharge ED Provider: Sukhwinder Delarosa Adult HPI General Chief complaint: Medical Clearance Stated complaint: Critical Labs, high potassium Time Seen by Provider: 06/27/25 23:00 Mode of Arrival: Ambulatory Source of Information: Patient Description of Symptoms (Recalled from ER Triage Doc. by RN): Pt was advised by PCP to come in and be seen due to potassium level being elevated. Pt states she thinks her level was 6.2 History of Present Illness HPI narrative: 65-year-old female with history of hypothyroidism diabetes and anemia presents for lab check. She reports that she had her blood work drawn recently and was called to be told that her potassium was 6.2 and that she needed to get her levels rechecked. She denies any chest pain abdominal pain shortness of breath recent fever illness, changes in medication, changes in bowel or bladder function etc. Related Data Home Medications ?Medication ?Instructions ?Recorded ?Confirmed mirtazapine 30 mg tablet 30 mg PO DAILY 05/16/20 06/27/25 temazepam 30 mg capsule 30 mg PO QHS 05/16/20 06/27/25 venlafaxine 150 mg 150 mg PO DAILY 04/14/22 06/27/25 capsule,extended release 24 hr Previous Rx's ?Medication ?Instructions ?Recorded pen needle, diabetic 32 gauge x #100 ea 08/23/23 (BD Evangelina 2nd Gen Pen Needle) tirzepatide 5 mg/0.5 mL 5 mg (0.5 mL) SQ WEEKLY #2 mL 05/17/24 subcutaneous pen injector (Mounjaro) esomeprazole magnesium 40 mg See Rx Instructions .Route 06/25/25 capsule,delayed release .COMPLEX #90 caps fenofibrate nanocrystallized 145 See Rx Instructions .Route 06/25/25 mg tablet .COMPLEX #90 tabs ferrous sulfate 325 mg (65 mg 325 mg PO DAILY #90 tabs 06/25/25 iron) tablet insulin glargine 100 unit/mL (3 60 unit (0.6 mL) SQ HS #15 mL 06/25/25 mL) subcutaneous pen (Lantus Solostar U-100 Insulin) levothyroxine 88 mcg capsule 88 mcg PO DAILY #90 caps 06/25/25 lisinopril 2.5 mg tablet See Rx Instructions .Route 06/25/25 .COMPLEX #90 tabs metformin 1,000 mg tablet See Rx Instructions .Route 06/25/25 .COMPLEX #180 tabs rosuvastatin 40 mg tablet 40 mg PO DAILY #90 tabs 06/25/25 diazepam 5 mg tablet 5 mg PO DAILY PRN anxiety #30 tabs 06/27/25 Allergies Allergy/AdvReac Type Severity Reaction Status Date / Time ciprofloxacin (From Cipro) Allergy Intermediate shortness Verified 06/27/25 13:22 of breath cefaclor Allergy Mild Rash Verified 06/27/25 13:22 cephalexin Allergy Mild Rash Verified 06/27/25 13:22 clindamycin AdvReac Mild Rash Verified 06/27/25 13:22 amoxicillin (From Augmentin) AdvReac Unknown Other Verified 06/27/25 13:22 clavulanic acid (From AdvReac Unknown Other Verified 06/27/25 13:22 Augmentin) [facility] Disclaimer: The information contained in this section may have been updated after the patient was seen, as this information can be updated by other users. Medical History (Updated 06/28/25 @ 00:15 by Sukhwinder Delarosa MD) Anemia Hypothyroidism Anxiety Diabetes Surgical History (Updated 06/25/25 @ 13:23 by Danelle Gerard MA) No history of previous surgery Family History (Updated 06/25/25 @ 13:24 by Danelle Gerard MA) Mother Diabetes Other Thyroid disorder Social History (Updated 06/25/25 @ 13:24 by Danelle Gerard MA) Smoking Status: Never smoker alcohol intake: never substance use type: denies use current occupational status: employed Travel in the last 8 weeks?: None household members: none housing: house Have you lived/traveled outside US in past 30 days?: No Contact w/someone who lives/traveled outside US past 30 days?: No Exposure to someone with infectious disease in past 14 days?: No Do you have a fever (greater than 100.4 F or 38 C)?: No Have you tested positive for COVID-19?: No Exposed to someone with COVID-19 in past 14 days?: No Do you have a sore throat?: No Do you have a cough?: No Do you have any weakness?: No Do you have any diarrhea?: No Are you experiencing any unusual bleeding?: No Do you have any muscle aches/pain?: No Do you have any abdominal pain?: No Are you experiencing loss of taste or smell?: No Other Medical History Have you received the Pneumonia Vaccine: No ROS Obtained: Yes All systems reviewed & no additional complaints except as documented Physical Exam General General appearance: alert and in no apparent distress Head Head exam: atraumatic and normocephalic Eye Eye exam: Present normal appearance, PERRL and EOMI ENT ENT exam: Present normal oropharynx and normal external ear exam Neck Neck exam: Present normal inspection and full ROM Chest Chest inspection: Present normal inspection and symmetric chest wall rise; Absent tenderness Respiratory Respiratory exam: Present normal lung sounds bilaterally; Absent respiratory distress Cardiovascular Cardiovascular exam: Present regular rate and normal rhythm Abdominal Exam Abdominal exam: Present soft; Absent distention, tenderness or guarding Extremities Exam Extremities exam: Present normal inspection; Absent edema or joint swelling Back Exam Back exam: Present normal inspection; Absent tenderness Neurological Exam Neurological exam: Present alert and oriented X3; Absent motor sensory deficit Psychiatric Psychiatric exam: Present normal affect and normal mood Skin Skin exam: Present warm, dry and normal color Lymphatic Lymphatic Findings: no adenopathy Medical Decision Making Medical Records Medical records reviewed: Yes I reviewed the patient's medical records. Screening: Per USPSTF and CDC recommendations, given the prevalence of disease in our region, it is our hospital?s policy to screen for HIV and viral Hepatitis for all patients aged 18 and over and those with ongoing risk factors. Los Inquiry Pt receiving controlled substance: No Los was queried for this patient: No Vital Signs: 06/27/25 22:32 06/28/25 00:53 06/28/25 00:58 Temperature 98.3 F 98.7 F Temperature Source Temporal Artery Scan Pulse Rate 90 84 Pulse Rate [Right] 101 H Respiratory Rate 18 22 16 Blood Pressure 159/92 H 139/84 Blood Pressure [Right Arm] 156/86 H Blood Pressure Mean [Right Arm] 109 Blood Pressure Source [Right Arm] Automatic Cuff Blood Pressure Position [Right Arm] Sitting 02 Sat by Pulse Oximetry 100 93 L Oxygen Delivery Method Room Air Room Air 06/28/25 01:00 06/28/25 01:16 06/28/25 01:30 Temperature Temperature Source Pulse Rate 95 H 87 90 Pulse Rate [Right] Respiratory Rate 22 Blood Pressure 165/88 H 176/91 H 187/96 H Blood Pressure [Right Arm] Blood Pressure Mean [Right Arm] Blood Pressure Source [Right Arm] Blood Pressure Position [Right Arm] 02 Sat by Pulse Oximetry 94 L 98 98 Oxygen Delivery Method 06/28/25 01:35 Temperature Temperature Source Pulse Rate 91 H Pulse Rate [Right] Respiratory Rate Blood Pressure 169/94 H Blood Pressure [Right Arm] Blood Pressure Mean [Right Arm] Blood Pressure Source [Right Arm] Blood Pressure Position [Right Arm] 02 Sat by Pulse Oximetry 98 Oxygen Delivery Method Lab Data Lab results reviewed: Yes I reviewed the patient's lab results. Lab Results 06/27/25 22:53: WBC 6.3, RBC 3.63 L, Hgb 9.9 L, Hct 32.8 L, MCV 90.4, MCH 27.3, MCHC 30.2 L, RDW 13.8, Plt Count 287, MPV 11.5 H, Neut % (Auto) 63.6, Lymph % (Auto) 28.8, Rich % (Auto) 7.4, Eos % (Auto) 0.0 L, Baso % (Auto) 0.0 L, Neut # (Auto) 4.0, Lymph # (Auto) 1.8, Rich # (Auto) 0.5, Eos # (Auto) 0.0, Baso # (Auto) 0.0, Sodium 139, Potassium 5.1, Chloride 105, Carbon Dioxide 25, Anion Gap 14.1, BUN 28 H, Creatinine 1.60 H D, Estimated Creat Clear 37, Estimated GFR 32 L, Est GFR ( Amer) 39 L D, Glucose 219 H D, Calcium 9.0, Phosphorus 3.6, Magnesium 1.2 L, Total Bilirubin 0.4, AST 27, ALT 24, Alkaline Phosphatase 60, Total Protein 6.6, Albumin 3.9, Globulin 2.7, Albumin/Globulin Ratio 1.4 06/28/25 01:07: Urine Color Yellow, Urine Appearance Clear, Urine pH 7.0, Ur Specific Barco 1.010, Urine Protein Negative, Urine Glucose (UA) Negative, Urine Ketones Negative, Urine Blood Negative, Urine Nitrate Negative, Urine Bilirubin Negative, Urine Urobilinogen 0.2, Ur Leukocyte Esterase Negative, Urine WBC Occasional, Ur Squamous Epith Cells 3-5, Urine Bacteria Trace 06/28/25 01:22: Sodium 139, Potassium 4.8, Chloride 105, Carbon Dioxide 25, Anion Gap 13.8, BUN 27 H, Creatinine 1.30 H, Estimated Creat Clear 45, Estimated GFR 41 L, Est GFR ( Amer) 50 L D, Glucose 142 H D, Calcium 9.1 06/27/25 22:53 06/28/25 01:22 Orders (Tests/Meds): ED MEDICATIONS Discontinued Medications Generic Name Dose Route Start Last Admin Trade Name Ean PRN Reason Stop Dose Admin Magnesium Sulfate 2 gm in 50 mls @ 50 mls/hr 06/27/25 23:28 06/28/25 00:55 Magnesium Sulfate 2gm/50ml Premix IV 06/28/25 00:27 Infused ONCE ONE Infusion Lactated Ringer's 1,000 mls @ 999 mls/hr 06/27/25 23:30 06/28/25 00:54 Lactated Ringer's 1000 Ml Bag IV 06/28/25 00:30 Infused .Q1H1M LEONA Infusion Magnesium Sulfate 2 gm in 50 mls @ 50 mls/hr 06/27/25 23:28 06/28/25 00:01 Magnesium Sulfate 2gm/50ml Premix IV 06/28/25 00:27 Infused ONCE ONE Infusion ORDERS Category Date Time Status BMP [Basic Metabolic Panel] Stat Lab 06/28/25 01:22 Completed CBC w/Auto Diff [Complete Blood Count Auto Diff] Stat Lab 06/27/25 22:53 Completed CMP [Comprehensive Metabolic Panel] Stat Lab 06/27/25 22:53 Completed Magnesium Stat Lab 06/27/25 22:53 Completed Phosphorous Stat Lab 06/27/25 22:53 Completed UA [Urinalysis and Microscopic] Stat Lab 06/28/25 01:07 Completed Medical Decision Narrative: 65-year-old female with history of diabetes and hypothyroidism presents for lab recheck after potassium was noted to be 6.2 and her creatinine was uptrending on recent outpatient lab work. She is asymptomatic.. History was obtained via interactive discussion with patient, family, chart review. On arrival, patient is [afebrile, hemodynamically stable, satting appropriately, alert, oriented x4, GCS 15], moving all extremities spontaneously. Full physical exam performed and significant for no significant physical exam abnormalities. Differential includes but is not limited to BALDEMAR, hyperkalemia, lab error. Her labs have been trending in the wrong direction over the last month or so. Her baseline creatinine is 1.0. Workup initiated including CBC CMP mag Phos. EKG On re-evaluation, patient [remains afebrile, HD stable.] Laboratory workup independently interpreted by me and significant for potassium 5.1, normal. Her magnesium is slightly low at 1.2. Her BUN and creatinine are 28 and 1.6 respectively. Her creatinine has up trended from 1.2-1.6 over the last couple of days.. EKG independently interpreted by me and significant for sinus rhythm with short CT interval, ventricular rate of 94, no widening QRS or T wave changes to suggest symptomatic hyperkalemia. Interpreted at 2244. Given patient history, exam and workup, patient's presentation most likely represents mild BALDEMAR with mild electrolyte derangements. I had interactive discussion with patient regarding presentation. We initiated 4 g of mag and 1 L of IV fluids for treatment. I recommended/offered admission for her for BALDEMAR given her creatinine has continued to trend upwards without an obvious source. Patient reports that she would prefer to follow-up with her PCP for lab recheck over the next day or 2. Given her electrolytes are normal and her creatinine elevation is still somewhat mild, I think this is reasonable. We ultimately decided to recheck her creatinine in the ER after fluids and it had downtrended to 1.3. Given this, I think she is definitely appropriate for discharge and she will follow-up with her PCP for reassessment. Procedures Risk/Benefits of Procedure(s) Were Explained: Yes Critical Care Critical Care Time Critical Care Time: No
[2025-06-27 23:08] LABS: Hematocrit 32.8 % (37.0-47.0); Hemoglobin 9.9 g/dL (12.2-16.2); Immature Granulocytes % 0.2 %; Mean Corpuscular HGB Conc 30.2 g/dL (31.8-35.4); Mean Corpuscular Hemoglobin 27.3 pg (27.0-31.2); Mean Corpuscular Volume 90.4 fl (81-99); Nucleated Red Blood Cells % 0 %; Platelet Count 287 K/mm3 (142-424); Red Blood Count 3.63 M/mm3 (4.20-5.40); Red Cell Distribution Width-SD 45.6 fL; White Blood Count 6.3 K/mm3 (4.8-10.8)
[2025-06-27 23:15] LABS: Alanine Aminotransferase 24 U/L (12-78); Albumin Level 3.9 g/dl (3.5-5.0); Albumin/Globulin Ratio 1.4 (1.1-1.8); Alkaline Phosphatase 60 U/L (38-126); Anion Gap 14.1 mEq/L (5-15); Aspartate Amino Transferase 27 U/L (14-36); Bilirubin,Total 0.4 mg/dl (0.2-1.3); Blood Urea Nitrogen 28 mg/dl (7-17); Calcium 9.0 mg/dl (8.4-10.2); Carbon Dioxide 25 mmol/L (22.0-30.0); Chloride 105 mmol/L (98-107); Creatinine Clearance Estimated 37 mL/min (50-200); Creatinine,Serum 1.60 mg/dl (0.52-1.04); Estimated Glomerular Filt Rate 32 ml/min (>60); GFR (African American) 39 ML/MIN (>60); Globulin 2.7 g/dL (1.3-3.2); Glucose 219 mg/dl (74-100); Magnesium 1.2 mg/dl (1.6-2.3); Phosphorous 3.6 mg/dl (2.5-4.5); Potassium 5.1 mmoL/L (3.5-5.1); Sodium 139 mmol/L (136-145); Total Protein,Serum 6.6 g/dl (6.3-8.2)
[2025-06-27] MEDS: MAGNESIUM SULFATE IN WATER 2 GM/50 ML PIGGYBACK IV (23:31)
[2025-06-27] MEDS: LACTATED RINGERS 1000ML 1,000 ML 999 ML IV (23:32)
[2025-06-28] MEDS: MAGNESIUM SULFATE IN WATER 2 GM/50 ML PIGGYBACK IV (00:01)
[2025-06-28 00:53] VITALS: BP 159/92; PULSE 90; RESP 22; O2SAT 93
[2025-06-28 00:58] VITALS: BP 139/84; PULSE 84; RESP 16; TEMP 37.1; O2SAT 96
[2025-06-28 01:00] VITALS: BP 165/88; PULSE 95; RESP 22; O2SAT 94
[2025-06-28 01:16] VITALS: BP 176/91; PULSE 87; O2SAT 98
[2025-06-28 01:30] VITALS: BP 187/96; PULSE 90; O2SAT 98
[2025-06-28 01:35] VITALS: BP 169/94; PULSE 91; O2SAT 98
[2025-06-28 01:39] LABS: Anion Gap 13.8 mEq/L (5-15); Blood Urea Nitrogen 27 mg/dl (7-17); Calcium 9.1 mg/dl (8.4-10.2); Carbon Dioxide 25 mmol/L (22.0-30.0); Chloride 105 mmol/L (98-107); Creatinine Clearance Estimated 45 mL/min (50-200); Creatinine,Serum 1.30 mg/dl (0.52-1.04); Estimated Glomerular Filt Rate 41 ml/min (>60); GFR (African American) 50 ML/MIN (>60); Glucose 142 mg/dl (74-100); Potassium 4.8 mmoL/L (3.5-5.1); Sodium 139 mmol/L (136-145)
[2025-06-28 01:42] LABS: Microscopic, Urine URINE MICROSCOPIC (MICROSCOPIC)
[2025-06-28 01:54] LABS: Bilirubin,Urine Negative (Negative); Color,Urine YELLOW (Yellow); Glucose,Urine (UA) Negative (Negative); Ketones,Urine Negative (Negative); Leukocyte Esterase,Urine Negative (Negative); PH,Urine 7.0 (5.0-8.5); Protein,Urine Negative (Negative); Specific Gravity, Urine 1.010 (1.005-1.030); Urobilinogen,Urine 0.2 EU/dl (0.2)
[2025-06-28 02:09] LABS: Bacteria,Urine Trace /lpf; WBC,Urine Occasional #/hpf (0-3)
== END 2025-06-28 02:01 | disposition home or self-care (01) ==
PROVIDERS: Emergency Provider Emergency Medicine; PCP Family Medicine
DX: E83.42 Hypomagnesemia (principal); N17.9 Acute kidney failure, unspecified; E11.65 Type 2 diabetes mellitus with hyperglycemia; Z79.4 Long term (current) use of insulin
CPT/HCPCS: 80048; 80053; 81001; 83735; 84100; 85025; 93005; 96365; 99284; 99285; J3475; J7120

== ENCOUNTER 2025-06-29 10:33 | Outpatient (CLI) | payer MEDICARE, SELFPAY ==
[2025-06-29 21:28] LABS: Albumin Level 3.7 g/dl (3.5-5.0); Chloride 105 mmol/L (98-107); Potassium 4.8 mmoL/L (3.5-5.1); Sodium 135 mmol/L (136-145)
[2025-06-29 21:31] LABS: Alanine Aminotransferase 24 U/L (12-78); Albumin/Globulin Ratio 1.4 (1.1-1.8); Alkaline Phosphatase 62 U/L (38-126); Anion Gap 10.8 mEq/L (5-15); Aspartate Amino Transferase 32 U/L (14-36); Bilirubin,Total 0.2 mg/dl (0.2-1.3); Blood Urea Nitrogen 18 mg/dl (7-17); Calcium 8.7 mg/dl (8.4-10.2); Carbon Dioxide 24 mmol/L (22.0-30.0); Creatinine,Serum 1.00 mg/dl (0.52-1.04); Estimated Glomerular Filt Rate 55 ml/min (>60); GFR (African American) 67 ML/MIN (>60); Globulin 2.7 g/dL (1.3-3.2); Glucose 91 mg/dl (74-100); Iron 99 ug/dL (37-170); Total Protein,Serum 6.4 g/dl (6.3-8.2)
[2025-06-29 21:32] LABS: Magnesium 1.5 mg/dl (1.6-2.3)
[2025-06-29 21:41] LABS: Total Iron Binding Capacity 401 ug/dL (265-497)
--- OUTSIDE RECORDS SUMMARY | 2025-07-02 10:45 | XMS_ITS | Clinical Summary ---
Author Organization [facility] Address [facility] [address] [place] [address] Phone Care Team Providers Care Pharmacy Clinical Specialist Name Role Phone Richard Figueroa MD Unavailable Unavailable Corey Roman MD Primary Care Provider [phone] Allergies Active Allergy Reactions Criticality Noted Date [...] by mouth 2 times daily. 60 Tab 9 Active venlafaxine (EFFEXOR XR) 150 mg Oral Capsule, Sust. Release 24 hrIndications: MDD (major depressive disorder), recurrent episode, moderate (HCC),Anxiety 2 caps daily 180 Capsule 2 5 Active mirtazapine (REMERON) 30 mg Oral TabletIndicati ons:MDD (major depressive disorder), recurrent episode, moderate (HCC),Anxiety Take 1 Tablet by mouth nightly. 100 Tablet 5 Active temazepam (RESTORIL) 30 mg Oral Capsule Take 1 Capsule by mouth daily. 30 Capsule 5 Active temazepam (RESTORIL) 30 mg Oral Capsule TAKE 1 CAPSULE BY MOUTH DAILY. 30 Capsule 5 025 Discontin ued(Reord er) Active Problems Patient Care Coordination No te Formatting of this note migh t be different from the original. Roxanne Siegel CSA Signed: 10/23/13 SOPHIE: 02/22/19 UDS 11/23/18 [...] 11:29 AM EST Incomplete-need additional imaging evaluation (ZOF-[id number]-3) ~ RECOMMENDATION: Ultrasound of the left breast. [...] addl evaluation requested from abnormal screening. R92.2-Inconclusive [id number] ~ MM MAMMO DIGITAL ROBEL DIAGN LEFT [...] addl evaluation requested from abnormal screening. R92.2-Inconclusive [id number] ~ MM MAMMO DIGITAL ROBEL DIAGN LEFT CC and MLO view(s) were taken of the left breast. Technologist: RT Brittney The breast tissue is almost entirely fat. Prior study comparison: Compared with prior studies, the most recentbeing 06/23/18 and 05/28/10. Three circumscribed 2 to 4 mm nodules are present in the mid 10:00 partof left breast. ~ IMPRESSION: Incomplete-need additional imaging evaluation ([id number]-[id number]-5) ~ RECOMMENDATION: Ultrasound of the left breast. [...] WORKERS' COMP GENERIC WORKERS' COMP Care Teams Pharmacy Clinical Specialist Relationship Specialty Start Date End Date Corey Roman MD PCP - General Family Medicine 06/03/16 Richard Figueroa MD Physician Psychiatry & Neurology-Psychiatry 01/30/14
== END 2025-06-29 23:59 ==
LOC: LAB.DROPOF 07-02 10:34
PROVIDERS: PCP Family Medicine; Visit Provider Family Medicine
DX: N17.9 Acute kidney failure, unspecified (principal); E83.42 Hypomagnesemia; E03.9 Hypothyroidism, unspecified
CPT/HCPCS: 80053; 82043; 82570; 83540; 83550; 83735

== ENCOUNTER 2025-07-03 16:10 | Outpatient (CLI) | payer MEDICARE, SELFPAY ==
--- OUTSIDE RECORDS SUMMARY | 2025-07-03 16:13 | XMS_ITS | Clinical Summary ---
Author Organization [facility] Address [address] [place] [id number] Care Team Providers Care Supervisor Spinning Name Role Phone Corey Roman MD Primary Care Provider [phone] Source Comments This information has been disclosed [...] therelease of HIV test results or diagnoses. [id number] Social History Tobacco Use Types Packs/Day [...] Health Maintenance Insurance BLUE ACCESS Care Teams Supervisor Spinning Relationship Specialty Start Date End Date Corey Roman MD [address] [place] [address] PCP - General Family Medicine 08/21/22
--- OUTSIDE RECORDS SUMMARY | 2025-07-03 16:13 | XMS_ITS | Clinical Summary ---
Author Organization [facility] Address [address] [place] [id number] Care Team Providers Care Millinery Worker Name Role Phone Unavailable Primary Care Provider [...]
--- OUTSIDE RECORDS SUMMARY | 2025-07-03 16:13 | XMS_ITS | Clinical Summary ---
Author Organization [facility] Address [facility] [place] [address] Phone Care Team Providers Care Magnetic Observer Name Role Phone Richard Figueroa MD Unavailable Unavailable Corey Roman MD Primary Care Provider [phone] Allergies Active Allergy Reactions Criticality Noted Date [...] 11:29 AM EST Incomplete-need additional imaging evaluation (VTA-[id number]-3) ~ RECOMMENDATION: Ultrasound of the left breast. [...] addl evaluation requested from abnormal screening. R92.2-Inconclusive [id number]-CM ~ MM MAMMO DIGITAL ROBEL DIAGN LEFT [...] addl evaluation requested from abnormal screening. R92.2-Inconclusive [id number]-[id number]-CM ~ MM MAMMO DIGITAL ROBEL DIAGN LEFT CC and MLO view(s) were taken of the left breast. Technologist: RT Brittney The breast tissue is almost entirely fat. Prior study comparison: Compared with prior studies, the most recentbeing 06/23/18 and 05/28/10. Three circumscribed 2 to 4 mm nodules are present in the mid 10:00 partof left breast. ~ IMPRESSION: Incomplete-need additional imaging evaluation (OST-Xoxjrshm-8) ~ RECOMMENDATION: Ultrasound of the left breast. [...] WORKERS' COMP GENERIC WORKERS' COMP Care Teams Magnetic Observer Relationship Specialty Start Date End Date Corey Roman MD PCP - General Family Medicine 06/03/16 Rcihard Figueroa MD Physician Psychiatry & Neurology-Psychiatry 01/30/14
--- NOTE | 2025-07-03 16:30 | MM_ITS ---
PROCEDURE INFORMATION: Exam: MG Bilateral Screening 3D Mammography Exam date and time: 07/03/2025 4:14 PM Age: 65 years old Clinical indication: Screening examination TECHNIQUE: Imaging protocol: Bilateral Screening tomosynthesis and 2D mammography including computer-aided detection (CAD) when performed. COMPARISON: 1. MG MAMMO SCREENING BILATERAL 08/21/2022 8:40 AM 2. MG MM MAMMO DIGITAL ROBEL DIAGN LEFT 07/27/2018 10:13 AM FINDINGS: MAMMOGRAPHY: Breast composition: The breasts are almost entirely fatty. Mass: None. Architectural distortion: None. Calcifications: No suspicious calcifications. Asymmetric density: None. Skin thickening: None. Axillary adenopathy: None. IMPRESSION: No mammographic evidence of malignancy. Annual screening is recommended unless otherwise clinically indicated. ASSESSMENT: BI-RADS Category 1: Negative.
== END 2025-07-03 23:59 | disposition home or self-care (01) ==
LOC: RAD 16:10
PROVIDERS: PCP Family Medicine; Visit Provider Family Medicine
DX: Z12.31 Encounter for screening mammogram for malignant neoplasm of breast (principal)
CPT/HCPCS: 77063; 77067